=== PATIENT | male | born 1995 | race American Indian/Alaskan Native ===

== ENCOUNTER 2018-10-06 08:49 | Emergency (ER) | payer MEDICAID ==
[2018-10-06 08:55] VITALS: BP 154/87
[2018-10-06] MEDS ORDERED: LIDOCAINE VISCOUS 2% PO ONE (09:37)
[2018-10-06] MEDS ORDERED: ALUM-MAG HYDROX-SIMETH 200-200-20MG/5ML PO ONE (09:37)
[2018-10-06] MEDS ORDERED: TYLENOL PO ONE (09:37)
--- NOTE | 2018-10-06 09:45 | Emergency Department Report ---
HPI - General Chief Complaint: Upper Respiratory Infection Time Seen by Provider: 10/06/18 09:08 - HPI HPI: Patient is a 23-year-old male who presents to ED complaining of throat pain 7 days. Patient describes pain as throbbing in nature, 8 out of 10 intensity, nonradiating, localized to his throat. Admits pain with swallowing, admits mild nausea and sometimes vomiting. Patient admits fever for the first 2 days but not at the moment. Patient denies nausea/vomiting/abdominal pain/shortness of breath/chest pain/headache. ED Past Medical Hx - Past Medical History Previous Medical History?: No - Surgical History Past Surgical History?: No - Social History Smoking Status: Never Smoker Substance Use Type: None - Medications Home Medications: Home Medications Medication Instructions Recorded Confirmed Last Taken Type Amoxicillin [Amoxicillin TAB] 875 mg PO BID #14 tablet 10/06/18 Unknown Rx Ibuprofen [Motrin] 800 mg PO Q8HR #20 tablet 10/06/18 Unknown Rx Nystas/Diphen/Xyl Visc/Mylanta 15 ml MM Q4H PRN #120 ml 10/06/18 Unknown Rx [Magic Mouthwash] ED Review of Systems ROS: Stated complaint: FLU LIKE SYMPTOMS Other details as noted in HPI Comment: All other systems reviewed and negative ENT: throat pain. denies: dental pain, hearing loss, congestion Physical Exam - Physical Exam Vital Signs: Vital Signs 10/06/18 08:53 Temperature 97.6 F Pulse Rate 93 H Respiratory 18 Rate Blood Pressure 154/87 O2 Sat by Pulse 97 Oximetry Physical Exam: GENERAL: Alert and oriented x3, no apparent distress, Normal Gait, atraumatic. HEAD: Head is normocephalic and a-traumatic. EYES: Extra ocular muscles are intact. Pupils are equal, round, and reactive to light and accommodation. MOUTH:Mouth is well hydrated and without lesions. Tonsils erythematous, exudative and swollen, Uvula midline, Tongue not elevated. Mucous membranes are moist. Posterior pharynx has exudate or lesions. Patent airways. NECK: Supple. Non edematous, No carotid bruits. No lymphadenopathy or thyromegaly. No C-spine tenderness LUNGS: Symetrical with respiration, No wheezing, no rales or crackles, CTAB. HEART: S1, S2 present, regular rate and rhythm without murmur, no rubs, no gallops. Non tender to palpation SKIN: Warm and dry, No lesions, No ulceration or induration present. ED Course Vital Signs 10/06/18 08:53 Temperature 97.6 F Pulse Rate 93 H Respiratory 18 Rate Blood Pressure 154/87 O2 Sat by Pulse 97 Oximetry ED Medical Decision Making - Medical Decision Making 23-year-old female presents with strep pharyngitis. ED course: Rapid strep tests ordered rapid strep test negative I will go ahead and treat Patient based on clinical diagnosis Patient received 1 dose of Tylenol, viscous lidocaine and Maalox mix No fever during the ED stay Vital signs stable patient is in no acute or respiratory distress. Discussed findings with patient about the positive strep. Discussed treatment in ED with patient Discussed the patient that strep throat is contagious and to limit sharing spoons and such. Patient to be sent home on Motrin and antibiotic therapy Discussed with patient follow-up with primary care physician. Patient verbally states he understands and will comply to follow-up. Critical care attestation.: If time is entered above; I have spent that time in minutes in the direct care of this critically ill patient, excluding procedure time. ED Disposition Clinical Impression: Pharyngitis Disposition: DC-01 TO HOME OR SELFCARE Is pt being admited?: No Does the pt Need Aspirin: No Condition: Stable Instructions: Pharyngitis (ED), Strep Throat (ED), Tonsillitis (ED) Additional Instructions: Make sure to follow up with the primary care physician as discussed. Take all your medications as you've been prescribed. If you have any worsening symptoms or develop new symptoms please return to ED immediately. Prescriptions: Amoxicillin [Amoxicillin TAB] 875 mg PO BID #14 tablet Ibuprofen [Motrin] 800 mg PO Q8HR #20 tablet Nystas/Diphen/Xyl Visc/Mylanta [Magic Mouthwash] 15 ml MM Q4H PRN #120 ml PRN Reason: Sore Throat Referrals: PRIMARY CARE,MD [Primary Care Provider] - 3-5 Days [facility] [Outside] - 3-5 Days [facility] [Outside] - 3-5 Days Forms: Work/School Release Form(ED) Time of Disposition: 09:59
== END 2018-10-06 10:25 | disposition home or self-care (01) ==
LOC: ED 08:49
DX: J02.0 Streptococcal pharyngitis (principal); Z91.010 Allergy to peanuts
CPT/HCPCS: 87116; 87430; 99283